=== PATIENT | male | born 1995 | race African-American/Black ===

== ENCOUNTER 2017-03-20 13:15 | Emergency (ER) | payer OTHER ==
[2017-03-20] MEDS ORDERED: Acetaminophen 500 MG TAB ONE (14:37)
== END 2017-03-20 15:40 | disposition home or self-care (01) ==
LOC: ERS 13:15
DX: J11.1 Influenza due to unidentified influenza virus with other respiratory manifestations (principal)
CPT/HCPCS: 87081; 87430; 87804; 99283